=== PATIENT | female | born 1975 | race Caucasian/White ===

== ENCOUNTER 2025-08-06 22:30 | Emergency (ER) | payer MEDICAID, OTHER ==
[~2025-08-06] VITALS: Ht 165.1 cm; Wt 79.3 kg
[2025-08-06 22:39] VITALS: TEMP 36.7
[2025-08-06] MEDS: KETOROLAC 30MG/ML VIAL IM ONE (23:00)
[2025-08-06 23:36] LABS: BASOPHILS % 0.7 % (0.0-2.0); EOSINOPHILS % 2.0 % (0.0-5.0); HEMATOCRIT. 37.3 % (36.0-48.0); HEMOGLOBIN. 11.9 g/dL (12.0-16.0); LYMPHOCYTES % 39.8 % (20.0-50.0); MEAN PLATELET VOLUME 6.8 fl (7.4-10.4); MONOCYTES % 5.0 % (2.0-8.0); NEUTROPHILS % 52.5 % (40.0-76.0); PLATELET 355 x1000/uL (130-400); RED BLOOD CELL COUNT 4.64 mill/uL (4.2-5.4); RED CELL DISTRIBUTION WIDTH 15.3 % (11.6-14.6)
[2025-08-06 23:51] LABS: CREATININE 0.7 mg/dL (0.6-1.0); PROTEIN TOTAL 7.1 g/dL (6.0-8.3); TROPONIN I HIGH SENSITIVITY < 4 ng/L (3.0-34); UREA NITROGEN BLOOD 10 mg/dL (9-23)
[2025-08-06 23:53] LABS: ASPARTATE AMINOTRANSFERASE 24 IU/L (<34); BILIRUBIN DIRECT < 0.1 mg/dL (<=3.0); BILIRUBIN TOTAL 0.2 mg/dL (0.1-1.0)
[2025-08-07 01:59] VITALS: PULSE 93; RESP 20; O2SAT 97
[2025-08-07] MEDS: ALBUTEROL (0.083%) 2.5MG/3ML NEB HHN ONE (01:59)
[2025-08-07 02:00] VITALS: BP 138/79; PULSE 81; RESP 16; O2SAT 99
[2025-08-07 02:00] LABS: HCG SCREEN NEGATIVE
[2025-08-07] MEDS ORDERED: IBUP-2028 MT (02:29)
[2025-08-07] MEDS ORDERED: ALBU18HF2 IH (02:29)
== END 2025-08-07 03:44 | disposition home or self-care (01) ==
LOC: ER 22:30
DX: R07.9 Chest pain, unspecified (principal); R05.9 Cough, unspecified; D64.9 Anemia, unspecified
CPT/HCPCS: 80076; 80048; 84703; 85025; 85379; 84484; 36415; 71045; 93005; 99285; 94640; 98960; Z7610 ×2; 94070